=== PATIENT | female | born 1990 | race Asian ===

== ENCOUNTER 2016-10-19 17:57 | Emergency (ER) | payer OTHER ==
[~2016-10-19] VITALS: Ht 167.6 cm; Wt 54.4 kg
[2016-10-19 18:17] VITALS: BP 105/56
[2016-10-19] MEDS ORDERED: TOPAMAX100 MG PO (18:24)
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
[2016-10-19 21:26] VITALS: BP 101/61
--- NOTE | 2016-10-19 21:26 | NUR ---
CALL PLACE TO FRIEND LEAVE MESSAGE [phone] FOR DRUPAL PHP DEVELOPER, PER PT IF FRIEND DOESNT SHOW UP WILL CALL AMINAH GUTHRIE AND JUICE GIVEN TO THE PT.INSTRUCTED PT TO FOLLOW UP WITH [facility]YS[facility] AND PT AGREED WITH IT.
== END 2016-10-19 21:26 | disposition home or self-care (01) ==
LOC: MED 17:57
DX: G40.909 Epilepsy, unspecified, not intractable, without status epilepticus (principal); Z88.8 Allergy status to other drugs, medicaments and biological substances

== ENCOUNTER 2016-10-19 23:51 | Observation (INO) | payer OTHER ==
[~2016-10-19] VITALS: Ht 162.6 cm; Wt 55.3 kg
[~2016-10-19 23:51] MED LIST: TOPAMAX100 MG PO
--- NOTE | 2016-10-19 23:51 | NUR ---
BIB WHEELCHAIR TO ER BED 6
[2016-10-20] VITALS (7 sets, daily range): BP systolic 87–148; BP diastolic 53–86
[2016-10-20] MEDS ORDERED: LORazepam 1 MG TAB PO ONE
[2016-10-20] MEDS ORDERED: NACL 0.9% 1,000 ML IV ONE (00:05)
[2016-10-20] MEDS ORDERED: LORazepam 2 MG/ML VIAL IVP ONE (00:15)
--- NOTE | 2016-10-20 00:15 | NUR ---
PT JUST BEING DISCHARGED. WHILE WAITING FOR HER RIDE NOTED EPISODE SEIZURE IN ER LOBBY.
[2016-10-20] MEDS ORDERED: LORazepam 2 MG/ML VIAL ONE (00:20)
[2016-10-20] MEDS ORDERED: ONDANSETRON 4 MG/2 ML VIAL IVP PRN (01:50)
[2016-10-20] MEDS ORDERED: LORazepam 2 MG/ML VIAL IVP PRN ×2 (01:50→13:35)
[2016-10-20] MEDS ORDERED: ACETAMINOPHEN 325 MG TAB PO PRN (01:50)
--- NOTE | 2016-10-20 02:06 | NUR ---
Patient will be admitted to care of DR. DONIS. Admited to TELEMETRY. Will go to room 121A. Belongings list completed. Report to FRANCIE CLARK.
--- NOTE | 2016-10-20 02:20 | NUR ---
ADMITTED A 26F FROM ER. TELE PT. CAME BY ARTEM DUE TO SEIZURE. PT IS STILL VERY DROWSY, SLEEPY . HAD SOME ATIVAN IV IN ER PRIOR TO ADMIT TO UNIT. OPEN EYES WHEN NAME CALLED BUT UNABLE TO GET INFORMATION . REPOSITIONED FOR COMFORT. SKIN IS INTACT . WITH X2 IV ACCESS RT AC #20 AND LT AC #20. BOTH CLEAR AND INTACT. BEDREST AND PLACED IN SEIZURE PRECAUTIONS, SIDE RAILS UP X2 AND PADDED. INITIATE HIGH RISK FOR FALL PROTOCOL. BED ON LOW POSITION. CALL LIGHT PLACED WITHIN EASY REACH. FOLLOW UP ADMIT ORDERS. WILL CONTINUE TO MONITOR.
[2016-10-20] MEDS: NACL 0.9% 1,000 ML IV SCH ×3 (03:06→21:48)
--- NOTE | 2016-10-20 03:06 | NUR ---
IVF NS @100ML /HR STARTED ON THE RT AC#20.
--- NOTE | 2016-10-20 04:33 | NUR ---
ABLE TO GET VITAL SIGNS BUT STILL DROWSY. UNABLE TO GET A COMPLETE ASSESSMENT AND HISTORY OF PT. WILL TRY AGAIN LATER WHEN PT IS MORE AWAKE.
--- NOTE | 2016-10-20 05:00 | NUR ---
PT AWAKE, GET OUT OF BED. SO ASSISTED TO BATHROOM. VOIDED. URINE SPECIMEN COLLECTED . SEND TO LAB.
--- NOTE | 2016-10-20 06:24 | NUR ---
SLEEPING AT THIS TIME. NO SEIZURE ACTIVITY NOTED.
--- NOTE | 2016-10-20 07:20 | NUR ---
PAGED DR. HEBERT FOR DIET ORDER . DR. PORTILLO JEWEL BEARING FACER. WILL ENDORSE TO AM NURSE WAITING FOR CALL BACK.
--- NOTE | 2016-10-20 07:22 | NUR ---
ENDORSED PT IN STABLE CONDITION TO AM NURSE.
--- NOTE | 2016-10-20 07:27 | NUR ---
RECEIVED PT IN BED, ASLEEP, AROUSABLE TO VOICE, NO SOB NOTED. DENIES ANY PAIN OR DISCOMFORT AT THIS TIME. SKIN INTACT. POSITIVE BOWEL SOUNDS NOTED ON FOUR QUADRANTS. DENIES ANY DISCOMFORT WITH BOWEL AND BLADDER ELIMINATION.PT BEDREST WITH ASSIST GOING TO THE BATHROOM. SAFETY PRECAUTION IN PLACE. CALL LIGHT WITHIN REACH.
--- NOTE | 2016-10-20 08:00 | NUR ---
PATIENT HAS BEEN SCREENED AND CATEGORIZED MODERATE NUTRITION RISK. PATIENT WILL BE SEEN WITHIN 3-5 DAYS OF ADMISSION. 10/22/16-10/24/[address]
[2016-10-20] MEDS: ENOXAPARIN 40 MG/0.4 ML SYR SUBQ SCH (09:30)
[2016-10-20] MEDS ORDERED: TOPIRAMATE 100 MG TAB PO SCH (09:43)
--- NOTE | 2016-10-20 09:47 | NUR ---
PHARMACY [facility] CALLED REGARDING TOPIRAMATE ORDER FOR PT. SPOKE WITH PT TO VERIFY. PT VERBALIZED SHE IS TAKING TOPIRAMATE 300MG TWICE A DAY FOR SEIZURE AT HOME.
--- NOTE | 2016-10-20 13:30 | NUR ---
DR. GRACIA CAME TO SEE PT WITH ORDERS MADE AND CARRIED OUT.
--- NOTE | 2016-10-20 18:35 | NUR ---
GLORIA FROM XRAY DEPT CAME TO SENIOR DATA SCIENTIST PT FOR CAT SCAN. PT DENIES ANY PAIN OR DISCOMFORT. NO SOB. VITAL SIGNS STABLE.
--- NOTE | 2016-10-20 18:50 | NUR ---
PT CAME BACK FROM CAT SCAN ON STABLE CONDITION ASSISTED BY RADIOLOGY STAFF
--- NOTE | 2016-10-20 19:25 | NUR ---
ENDORSED TO UPCOMING SHIFT FOR CONTINUITY OF CARE. PT ON STABLE CONDITION. KEPT CLEAN, DRY AND COMFORTABLE, NEEDS ATTENDED.
--- NOTE | 2016-10-20 19:40 | NUR ---
RECEIVED PT IN STABLE CONDITION FROM AM NURSE. AWAKE,ALERT AND ORIENTED X4. ON RAD MONITOR. NO ACUTE DISTRESS NOTED. NO C/O PAIN OR DISCOMFORT. STILL EATING DINNER FOR PT JUST GOT BACK FOR CT SCAN OF HEAD. HAS IV ACCESS ON THE RT AC NA LT AC BOTH #20. IVF TO CONTINUE. PT MADE AWARE. PLAN OF CARE DISCUSSED AND VERBALIZED UNDERSTANDING. CALL LIGHT PLACED WITHIN EASY REACH. SIDE RAILS PADDED FOR SEIZURE PRECAUTION. WILL CONTINUE TO MONITOR.
[2016-10-20] MEDS: TOPIRAMATE 100 MG TAB PO SCH (20:47)
--- NOTE | 2016-10-20 20:47 | NUR ---
TOPAMAX DUE FOR TONIGHT NOT GIVEN FOR PT SAID SHE TOOK ALREADY HER OWN. EXPLAINED TO PT THAT IF SHE WANTS TO TAKE HER OWN MEDICINE , SHE HAS TO GIVE IT FOR PHARMACY TO TAKE CARE. AND SHE CAN GET IT BACK BEFORE SHE GOES HOME. PT REFUSED . SHE STILL HAS THEM IN HER BAG. AMBER FARRELLSALESPERSON NEW CARS MADE HER AWARE.
--- NOTE | 2016-10-20 22:00 | NUR ---
AWAKE, EATING SOME SNACKS. NO DISCOMFORT NOTED.
[2016-10-21] VITALS: BP 100/57
--- NOTE | 2016-10-21 00:30 | NUR ---
SLEEPING AT THIS TIME. NO SEIZURE ACTIVITY NOTED. WILL CONTINUE TO MONITOR.
--- NOTE | 2016-10-21 03:00 | NUR ---
ASSISTED UP TO BATHROOM . VOIDED WELL. NO DISCOMFORT NOR PAIN NOTED. WILL CONTINUE TO MONITOR.
[2016-10-21 04:15] VITALS: BP 101/53
[2016-10-21] MEDS: NACL 0.9% 1,000 ML IV SCH ×2 (05:24→07:48)
--- NOTE | 2016-10-21 06:27 | NUR ---
PT HAS BEEN STABLE DURING THE NIGHT. NO SEIZURE ACTIVITY NOTED. WILL CONTINUE TO MONITOR.
--- NOTE | 2016-10-21 07:30 | NUR ---
ENDORSED PT IN STABLE CONDITION TO AM NURSE FOR CONTINUITY OF CARE.
--- NOTE | 2016-10-21 07:30 | NUR ---
RECEIVED REPORT FROM NIGHT NURSE. PT IS AAOX4, ON ROOM AIR, IV TO RIGHT AC 20G INFUSING WELL, LEFT AC 20G SALINE LOCK PATENT AND INTACT, SKIN INTACT. INITIAL ASSESSMENT COMPLETED, REVIEWED PLAN OF CARE WITH PT, PT VERBALIZED UNDERSTANDING. AL SAFETY PRECAUTIONS MET. CALL LIGHT WITHIN REACH. WILL CONTINUE TO MONITOR.
[2016-10-21 08:00] VITALS: BP 98/62
[2016-10-21] MEDS: TOPIRAMATE 100 MG TAB PO SCH (08:12)
[2016-10-21] MEDS: ENOXAPARIN 40 MG/0.4 ML SYR SUBQ SCH (08:16)
--- NOTE | 2016-10-21 08:17 | NUR ---
DUE MEDICATIONS GIVEN, PT CURRENTLY EATING BREAKFAST, ALL NEEDS MET. CALL LIGHT WITHIN REACH. WILL CONTINUE TO MONITOR.
--- NOTE | 2016-10-21 10:45 | NUR ---
PT CURRENTLY SLEEPING. NO S/S OF DISTRESS NOTED. CALL LIGHT WITHIN REACH. WILL CONTINUE TO MONITOR.
[2016-10-21 12:00] VITALS: BP 106/66
--- NOTE | 2016-10-21 13:45 | NUR ---
PT CURRENTLY RESTING IN BED, ALL NEEDS MET. CALL LIGHT WITHIN REACH. WILL CONTINUE TO MONITOR
--- NOTE | 2016-10-21 15:05 | NUR ---
ALL NEEDS MET, CALL LIGHT WITHIN REACH. WILL CONTINUE TO MONITOR.
[2016-10-21 16:00] VITALS: BP 111/68
--- NOTE | 2016-10-21 17:15 | NUR ---
DISCUSSED DISCHARGE PLAN WITH PT, PT VERBALIZED UNDERSTANDING. CALLED EDELMIRA AYERS AT [phone] PT'S FRIEND. INFORMED MR. AYERS THAT PT WILL BE DISCHARGE TODAY AND WILL NEED TO BE PICKED UP FROM HOSPITAL. ACCORDING TO HE WILL NO BE ABLE TO HEAD OF LOSS PREVENTION PT, PT INFORMED AND WILL PROVIDE TAXI VOUCHER, PT VERBALIZED UNDERSTANDING.
--- NOTE | 2016-10-21 18:51 | NUR ---
PT SIGNED ALL DISCHARGE PAPER WORK, DISCHARGE INSTRUCTIONS GIVEN/EDUCATION, PT VERBALIZED UNDERSTANDING. GAVE PT INFORMATION REGARDING FOLLOW UP APPOINTMENT WITH , PT VERBALIZED UNDERSTANDING. IV REMOVED TIP INTACT. AWAITING FOR TAXI TO INTERMEDIATE MANAGER PT.
--- NOTE | 2016-10-21 19:44 | NUR ---
ENDORSED DISCHARGE PLAN TO CHARGE NURSE, AWAITING FOR TAXI ARRIVAL.
== END 2016-10-21 19:50 | disposition home or self-care (01) ==
LOC: MED 23:51 → UNDOADMIN 10-20 01:58 → MTU 10-20 01:58
PROVIDERS: ADMIT Hospitalist; ATTEND Hospitalist
DX: G40.89 Other seizures (principal); F10.10 Alcohol abuse, uncomplicated
CPT/HCPCS: 36415; 70450; 80048; 80053; 80305; 83735; 84702; 85025; 85610; 87081; 95816; 96361; 96372; 96374; 99285; G0378; G0480; G0482; J1650; J2060; J7030

== ENCOUNTER 2017-01-04 19:03 | Emergency (ER) | payer OTHER ==
[~2017-01-04] VITALS: Ht 167.6 cm; Wt 50.8 kg
[~2017-01-04 19:03] MED LIST changes: -TOPAMAX100 MG PO; +[UNRECOGNIZED DRUG - CODE] PO
[2017-01-04 19:05] VITALS: BP 113/71
--- NOTE | 2017-01-04 19:07 | NUR ---
Pt BIBA to bed 3 at this time.
--- NOTE | 2017-01-04 19:08 | NUR ---
Patient being evaluated by Dr. Toussaint at bedside. Addendum: 01/04/17 at 1911 by RYLEE Patient being evaluated by at bedside.
[2017-01-04] MEDS ORDERED: LORazepam 1 MG TAB PO ONE (19:25)
--- NOTE | 2017-01-04 19:45 | NUR ---
PT ALSO C/O OF RIGHT NOSTRIL IRRITATION, X 1 WEEK, PT STATES CAUSE IS UNKNOWN, SMALL HEALED STRATCHES NOTED.
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
[2017-01-04 19:46] LABS: BASOPHILS # (AUTO) 0.3 K/uL (0.00-0.22); EOSINOPHILS # (AUTO) 0.2 K/uL (0-0.4)
--- NOTE | 2017-01-04 19:46 | NUR ---
PT TAKEN TO CT
[2017-01-04 19:49] LABS: BILIRUBIN,URINE 1+ (NEGATIVE); BLOOD, URINE NEGATIVE (NEGATIVE); COLOR,URINE YELLOW (YELLOW); LEUKOCYTE ESTERASE ,URINE NEGATIVE (NEGATIVE); NITRITE, URINE NEGATIVE (NEGATIVE); PROTEIN,URINE 1+ (NEGATIVE); UGLUCOSE NEGATIVE (NEGATIVE)
[2017-01-04 19:54] LABS: HEMATOCRIT 40.9 % (36-48); LYMPHOCYTES # (AUTO) 1.6 K/uL (2.5-16.5); MEAN CORPUSCULAR HEMOGLOBIN 27 pg (27-31); MEAN CORPUSCULAR HGB CONC 32 g/dL (33-37); MEAN CORPUSCULAR VOLUME 84 fL (80-94); MONOCYTES # (AUTO) 0.6 K/uL (0.8-1.0); NEUTROPHILS # (AUTO) 4.4 K/uL (1.8-7.7); PLATELET COUNT (AUTO) 269 K/uL (140-450); RED BLOOD CELL COUNT(AUTO) 4.86 MIL/uL (4.20-5.40); RED CELL DISTRIBUTION WIDTH 11.5 % (11.6-13.7); WHITE BLOOD COUNT (AUTO) 7.1 K/uL (4.8-10.8)
--- NOTE | 2017-01-04 19:56 | NUR ---
PT RETURN FROM CT
[2017-01-04 19:59] LABS: ANION GAP 12.9 (8-16); CALCIUM 8.1 mg/dL (8.5-10.1); CARBON DIOXIDE 26.8 mmol/L (21-32); CHLORIDE 109 mmol/L (98-107); GFR ARICAN-AMERICAN 86 mL/min (>90); GFR NON ARICAN-AMERICAN 71 mL/min (>90); GLUCOSE 77 mg/dL (74-106); POTASSIUM 3.7 mmol/L (3.5-5.1); SODIUM SERUM 145 mmol/L (136-145); UREA NITROGEN, BLOOD 9 mg/dL (7-18)
[2017-01-04 20:02] LABS: AMPHETAMINE, URINE NEG. ng/ml (NEG <=1000); BARBITURATE, URINE NEG. ng/ml (NEG <=200); BENZODIAZEPINE, URINE NEG. ng/mL (NEG <=200); CANNABINOID, URINE NEG. ng/mL (NEG <=50); COCAINE, URINE NEG. ng/mL (NEG <=300); OPIATE, URINE NEG. ng/mL (NEG <=2000); PHENCYCLIDINE SCREEN,URINE NEG. ng/mL (NEG <=25)
[2017-01-04 20:05] LABS: INR 1.1 (0.8-1.2); PROTHROMBIN TIME 10.9 secs (10.8-13.4)
[2017-01-04 20:05] LABS: APPEARANCE,URINE CLEAR (CLEAR)
[2017-01-04 20:13] LABS: BACTERIA,URINE 1+ /HPF (None Seen); RBC,URINE NONE SEEN /HPF (0-5); SQUAMOUS EPITHELIAL CELL,UR 4-10 (MOD) /LPF (0-3 (FEW)); WBC,URINE 0-5 (RARE) /HPF (0-5)
[2017-01-04 20:14] LABS: ACETAMINOPHEN < 0.5 ug/ml (10-30); ALANINE AMINOTRANSFERASE 13 U/L (14-59); ALBUMIN 4.2 g/dL (3.4-5.0); ALCOHOL, BLOOD < 3 mg/dL (<3); ALKALINE PHOSPHATASE 49 U/L (46-116); ASPARTATE AMINOTRANSFERASE 12 U/L (15-37); SALICYLATE < 2.8 mg/dL (2.8-20.0); TOTAL BILIRUBIN 0.2 mg/dL (0.0-1.0); TOTAL PROTEIN, SERUM 8.2 g/dL (6.4-8.2)
[2017-01-04] MEDS ORDERED: TOPIRAMATE 100 MG TAB PO ONE (20:35)
--- NOTE | 2017-01-04 20:42 | NUR ---
TOPAMAX 100MG NOT AVAILABLE IN [facility], CALLED [facility], WILL BRING TO ER
[2017-01-04] MEDS ORDERED: TOPIRAMATE 25 MG TAB ONE ×2 (21:01→21:04)
--- NOTE | 2017-01-04 21:24 | NUR ---
PT INFORMED SHE MUST HAVE FAMILY MEMBER OR FRIEND COME TO ER BEFORE SHE CAN BE D/C. PTY STATES SHE WILL CALL HER FRIEND.
--- NOTE | 2017-01-04 21:40 | NUR ---
CALLED LEFT [facility] FOR FRIEND EDELMIRA AYERS [phone], NO ANSWER, LEFT VOICEMAIL
--- NOTE | 2017-01-04 22:10 | NUR ---
PT STATED SHE WILL CALL ANOTHER FRIEND TO COME PICK HER UP.
--- NOTE | 2017-01-04 22:50 | NUR ---
PT MOVED TO OF4
--- NOTE | 2017-01-04 23:00 | NUR ---
Pupils equal and reactive to light bilaterally. No facial droop noted. No smile deficit noted. Speech normal for patient. Patient is alert and oriented to person, place, time and event. Bilateral hand meal cook equal. Bilateral foot push equal.
--- NOTE | 2017-01-04 23:11 | NUR ---
Patient appears to be resting comfortably in bed. Vital Signs within normal limits. Respirations even and unlabored.
--- NOTE | 2017-01-04 23:15 | NUR ---
Patient discharged with v/s stable. Written and verbal after care instructions given and explained. Patient alert, oriented and verbalized understanding of instructions. Wheel Chair Assisted with to car. All questions addressed prior to discharge. ID band removed. Patient advised to follow up with PMD. Rx of TOPAMAX 100MG 3TABS BID given. Patient educated on indication of medication including possible reaction and side effects. Opportunity to ask questions provided and answered.
[2017-01-04 23:17] VITALS: BP 128/75
== END 2017-01-04 23:15 | disposition home or self-care (01) ==
LOC: MED 19:03
DX: G40.909 Epilepsy, unspecified, not intractable, without status epilepticus (principal); Z91.14 Patient's other noncompliance with medication regimen; Z88.8 Allergy status to other drugs, medicaments and biological substances
CPT/HCPCS: 36415; 70450; 80053; 80305; 81001; 81025; 84703; 85025; 85610; 99285; G0480; G0482